=== PATIENT | female | born 1985 | race African-American/Black ===

== ENCOUNTER 2017-10-03 20:46 | Emergency (ER) | payer MEDICAID ==
[~2017-10-03] VITALS: Ht 172.7 cm; Wt 68.0 kg
[2017-10-03 20:51] VITALS: BP 112/72
== END 2017-10-04 01:33 | disposition left against medical advice (07) ==
LOC: ER 20:54
DX: M25.512 Pain in left shoulder (principal); M25.562 Pain in left knee; Z53.21 Procedure and treatment not carried out due to patient leaving prior to being seen by health care provider

== ENCOUNTER 2018-09-10 06:07 | Emergency (ER) | payer SELFPAY ==
[~2018-09-10] VITALS: Ht 162.6 cm; Wt 76.0 kg
[2018-09-10] MEDS ORDERED: FLUORESCEIN SODIUM 1MG/STRIP RIGHTEYE ONE (06:30)
[2018-09-10] MEDS ORDERED: TETRACAINE 0.5% OPHTH DROPS 4ML RIGHTEYE ONE (06:30)
[2018-09-10 09:30] VITALS: BP 110/63
== END 2018-09-10 09:52 | disposition home or self-care (01) ==
LOC: ER 06:07
DX: H57.11 Ocular pain, right eye (principal); H01.8 Other specified inflammations of eyelid; Z88.0 Allergy status to penicillin; Z88.3 Allergy status to other anti-infective agents
CPT/HCPCS: 99283